=== PATIENT | male | born 1985 | race Caucasian/White ===

== ENCOUNTER 2024-03-26 22:30 | Emergency (ER) | payer OTHER ==
[2024-03-26 22:35] VITALS: RESP 18
--- NOTE | 2024-03-26 23:43 | ED ---
Lower Extremity Injury HPI - General Chief Complaint: Extremity Injury, Lower Stated Complaint: Left leg injury Time Seen by Provider: 03/26/24 22:49 Source: patient, RN notes reviewed Mode of arrival: ambulatory Limitations: no limitations - History of Present Illness Initial Comments: 38-year-old male presents emergency department chief complaint of left lower extremity injury. He states that approximately 2 weeks ago while he was playing softball and the ball hit his berry and he experienced a bump with bruising. Patient is concerned that over the past week there was ecchymosis and swelling of the ankle and the bump on the berry has not decreased much in size. He has been doing symptomatic treatment at home with Tylenol, Motrin, ice, elevation while not on his feet. Denies numbness or tingling or loss of motor function. Denies previous surgeries of the left lower extremity. - Related Data Allergies Allergy/AdvReac Type Severity Reaction Status Date / Time No Known Allergies Allergy Verified 03/26/24 22:35 Review of Systems ROS Statement: Those systems with pertinent positive or pertinent negative responses have been documented in the HPI. ROS Other: All systems not noted in ROS Statement are negative. Past Medical History Past Medical History: No Reported History History of Any Multi-Drug Resistant Organisms: MRSA Date of last positivie culture/infection: 1993 MDRO Source:: Index finger Past Surgical History: No Surgical Hx Reported Past Psychological History: No Psychological Hx Reported Smoking Status: Never smoker Past Alcohol Use History: None Reported Past Drug Use History: None Reported General Exam Limitations: no limitations General appearance: alert, in no apparent distress Head exam: Present: atraumatic, normocephalic, normal inspection Eye exam: Present: normal appearance, PERRL, EOMI. Absent: scleral icterus, conjunctival injection, periorbital swelling ENT exam: Present: normal exam, mucous membranes moist Neck exam: Present: normal inspection. Absent: tenderness, meningismus, l ymphadenopathy Respiratory exam: Present: normal lung sounds bilaterally. Absent: respiratory distress, wheezes, rales, rhonchi, stridor Cardiovascular Exam: Present: regular rate, normal rhythm, normal heart sounds. Absent: systolic murmur, diastolic murmur, rubs, gallop, clicks GI/Abdominal exam: Present: soft, normal bowel sounds. Absent: distended, tenderness, guarding, rebound, rigid Left Lower Leg exam: Present: tenderness, swelling (anterior berry), ecchymosis Ankle exam: Present: normal inspection, full ROM, swelling. Absent: tenderness Foot/Toe exam: Present: normal inspection, full ROM. Absent: tenderness Neurovascular tendon exam: Present: no vascular compromise. Absent: abnormal cap refill Gait: observed and normal Back exam: Present: normal inspection Skin exam: Present: warm, dry, intact, normal color. Absent: rash Course Vital Signs 03/26/24 03/26/24 22:33 23:55 Temperature 97.7 F 97.9 F Pulse Rate 114 H 90 Respiratory 18 18 Rate Blood Pressure 140/77 133/76 O2 Sat by Pulse 99 99 Oximetry Medical Decision Making - Medical Decision Making Was pt. sent in by a medical professional or institution (PANCHITO Hyatt, SENIOR GEOTECHNICAL ENGINEER, urgent care, hospital, or snf...) When possible be specific @ -No Did you speak to anyone other than the patient for history (EMS, parent, family, police, friend...)? What history was obtained from this source @ -No Did you review nursing and triage notes (agree or disagree)? Why? @ -I reviewed and agree with nursing and triage notes Were old charts reviewed (outside hosp., previous admission, EMS record, old EKG, old radiological studies, urgent care reports/EKG's, snf records)? Report findings @ -No old charts were reviewed Differential Diagnosis (chest pain, altered mental status, abdominal pain women, abdominal pain men, vaginal bleeding, weakness, fever, dyspnea, syncope, headache, dizziness, GI bleed, back pain, seizure, CVA, palpatations, mental health, musculoskeletal)? @ -Differential Musculoskeletal Muscular strain, contusion, ligament sprain, fracture, arthritis, septic arthritis, bursitis, cellulitis, muscle spasm, nerve compression, DVT, arterial occlusion, herpes zoster, electrolyte abnormality, tumor.... This is not meant to be in all inclusive list EKG interpreted by me (3pts min.). @ -None X-rays interpreted by me (1pt min.). @ -Left x-ray tibia-fibula no acute osseous pathology, mild anterior swelling CT interpreted by me (1pt min.). @ -None done U/S interpreted by me (1pt. min.). @ -None done What testing was considered but not performed or refused? (CT, X-rays, U/S, labs)? Why? @ -None What meds were considered but not given or refused? Why? @ -None Did you discuss the management of the patient with other professionals (professionals i.e. , PA, SENIOR GEOTECHNICAL ENGINEER, lab, RT, psych nurse, social worker aide, child welfare worker, teacher, maritime officer, watch caser)? Give summary @ -No Was smoking cessation discussed for >3mins.? @ -No Was critical care preformed (if so, how long)? @ -No Were there social determinants of health that impacted care today? How? (Homelessness, low income, unemployed, alcoholism, drug addiction, transportation, low edu. Level, literacy, decrease access to med. care, group home, rehab)? @ -No Was there de-escalation of care discussed even if they declined (Discuss DNR or withdrawal of care, Hospice)? DNR status @ -No What co-morbidities impacted this encounter? (DM, HTN, Smoking, COPD, CAD, Cancer, CVA, ARF, Chemo, Hep., AIDS, mental health diagnosis, sleep apnea, morbid obesity)? @ -None Was patient admitted / discharged? Hospital course, mention meds given and route, prescriptions, significant lab abnormalities, going to OR and other pertinent info. @ -Discharge. 38-year-old male with left lower extremity injury. On examination patient noted to have swelling of the anterior left berry and mild pain to palpation over the area. Negative Homans' sign. Vital stable. There is minimal clinical concern for DVT and Wells score is unremarkable. X-ray nonconcerning for acute process. Patient to use compression stockings at home and continue Tylenol Motrin and rest and ice as injuries due to severity take a multitude of time and rest to heal appropriately.-The patient follows up with his primary care provider next week for further evaluation. All questions answered at bedside and strict return parameters discussed with the patient he is verbalized understanding. Case discussed with Dr. Barclay. Undiagnosed new problem with uncertain prognosis? @ -No Drug Therapy requiring intensive monitoring for toxicity (Heparin, Nitro, Insulin, Cardizem)? @ -No Were any procedures done? @ -No Diagnosis/symptom? @ -Left lower extremity hematoma Acute, or Chronic, or Acute on Chronic? @ -Acute Uncomplicated (without systemic symptoms) or Complicated (systemic symptoms)? @ -Uncomplicated Side effects of treatment? @ -No Exacerbation, Progression, or Severe Exacerbation? @ -No Poses a threat to life or bodily function? How? (Chest pain, USA, NV, pneumonia, PE, COPD, DKA, ARF, appy, cholecystitis, CVA, Diverticulitis, Homicidal, Suicidal, threat to staff... and all critical care pts) @ -No Disposition Clinical Impression: Contusion Disposition: HOME SELF-CARE Condition: Good Instructions (If sedation given, give patient instructions): Bone Bruise (ED) Additional Instructions: Return to the emergency department for any new or worsening symptoms. Use compression socks, cycle Tylenol Motrin, keep leg elevated. Recommend follow-up with primary care provider this week for further evaluation. Is patient prescribed a controlled substance at d/c from ED?: No Referrals: None,Stated [Primary Care Provider] - 1-2 days Time of Disposition: 23:42
[2024-03-27 00:03] VITALS: BP 133/76; PULSE 90; TEMP 97.9
--- NOTE | 2024-03-27 00:44 | XR ---
EXAM: XR Left Tibia and Fibula, 2 Views CLINICAL HISTORY: ITS.REASON XR Reason: Hit with softball TECHNIQUE: Frontal and lateral views of the left tibia and fibula. COMPARISON: No relevant prior studies available. FINDINGS: Bones/joints: No acute fracture or malalignment. Soft tissues: Soft tissue edema in the berry. IMPRESSION: No acute fracture.
== END 2024-03-26 23:55 | disposition home or self-care (01) ==
LOC: EC 22:30
CPT/HCPCS: 99283